=== PATIENT | female | born 1995 | race Caucasian/White ===

== ENCOUNTER 2022-12-18 22:44 | Emergency (ER) | payer OTHER ==
[~2022-12-18] VITALS: Ht 167.6 cm; Wt 65.8 kg
[2022-12-19 01:05] VITALS: BP 120/93
[2022-12-19 05:27] LABS: N. GONORRRHOEAE BY PCR NOT DETECTED (NOT DETECT)
[2022-12-20 13:15] LABS: HEPATITIS B SURFACE ANTIBODY 389.81 IU/L (())
[2022-12-20 14:30] LABS: HIV 1,2 COMBO ANTIGEN/ANTIBODY Negative (Negative)
[2022-12-20 14:52] LABS: HEPATITIS C AB CIA INTERP Negative (Negative); HEPATITIS C ANTIBODY CIA INDEX 0.07 IV (())
== END 2022-12-19 01:05 | disposition home or self-care (01) ==
LOC: ED 22:44
PROVIDERS: Family Medicine
DX: T74.21XA Adult sexual abuse, confirmed, initial encounter (principal)
CPT/HCPCS: 36415; 86706; 86803; 96372; 99284; A9270; J0696